=== PATIENT | male | born 1950 | race Caucasian/White ===

== ENCOUNTER 2018-04-17 08:12 | Emergency (ER) | payer BC | END 2018-04-17 09:58 | disposition home or self-care (01) | LOC: FTE 08:12 | DX: S00.03XA Contusion of scalp, initial encounter (principal); W06.XXXA Fall from bed, initial encounter; Y92.9 Unspecified place or not applicable; Z79.82 Long term (current) use of aspirin | CPT/HCPCS: 70450; 72125; 99285-25 ==

== ENCOUNTER 2018-04-25 04:15 | Inpatient (IN) | payer BC ==
[2018-04-25] MEDS: DEXTROSE 5%-0.45% NACL 1,000 ML IV (05:20)
[2018-04-25] MEDS ORDERED: GLUCOSE GEL 15 GRAM TUBE BUCCAL (05:30)
[2018-04-25] MEDS ORDERED: ONDANSETRON 4 MG INJ IV (05:30)
[2018-04-25] MEDS ORDERED: GLUCAGON 1 MG INJ IM (05:30)
[2018-04-25] MEDS ORDERED: DEXTROSE 50% 50 ML SYRINGE IV ×2 (05:30)
[2018-04-25] MEDS ORDERED: GLUCOSE GEL 15 GRAM TUBE PO ×2 (05:30)
[2018-04-25] MEDS: INSULIN ASPART [NOVOLOG] 3 ML PEN SC (09:00)
[2018-04-25] MEDS: ARIPIPRAZOLE 10 MG TAB PO ×2 (10:12→20:14)
[2018-04-25] MEDS: BUPROPION (XL) 150 MG TAB PO (10:12)
[2018-04-25] MEDS: ASPIRIN 81 MG TAB PO (10:12)
[2018-04-25] MEDS: AMLODIPINE 10 MG TAB PO (10:14)
[2018-04-25] MEDS: HEPARIN 5,000 UNIT/0.5 ML VIAL SC ×2 (10:14→20:15)
[2018-04-25] MEDS: Insulin NOVOLOG SS MILD Algorithm (SS with meals and bedtime) SC ×3 (11:30→20:21)
[2018-04-25] MEDS ORDERED: INSULIN ASPART [NOVOLOG] 3 ML PEN SC (11:30)
[2018-04-25 12:30] LABS: ADD MAN DIFF? NO
[2018-04-25 12:32] LABS: WHITE BLOOD COUNT 9.6 10^3/ul (4.8-10.8)
[2018-04-25 12:32] LABS: BASOPHIL # 0.1 10^3/ul (0.0-0.1); BASOPHILS % 0.5 % (0.0-2.0); EOSINOPHILS # 0.1 10^3/ul (0.0-0.5); EOSINOPHILS % 1.3 % (0.0-7.0); HEMATOCRIT 42.5 % (42.0-52.0); HEMOGLOBIN 13.7 g/dl (14.0-18.0); LYMPHOCYTES # 2.7 10^3/ul (0.8-2.9); MEAN CORPUSCULAR HEMOGLOBIN 27.9 pg (29.0-33.0); MEAN CORPUSCULAR HGB CONC 32.2 g/dl (32.0-37.0); MEAN CORPUSCULAR VOLUME 86.6 fl (82.0-101.0); MEAN PLATELET VOLUME 9.9 fl (7.4-10.4); MONOCYTE # 0.8 10^3/ul (0.3-0.9); MONOCYTES % 8.6 % (0.0-11.0); NEUTROPHIL # 5.9 10^3/ul (1.6-7.5); NEUTROPHILS % 61.3 % (39.0-77.0); PLATELET COUNT 248 10^3/UL (140-415); RED BLOOD COUNT 4.91 10^6/ul (4.70-6.10); RED CELL DISTRIBUTION WIDTH 14.2 % (11.5-14.5)
[2018-04-25 12:54] LABS: ANION GAP 12 (8-16); BLOOD UREA NITROGEN 23 mg/dl (7-20); CALCIUM 9.2 mg/dl (8.4-10.2); CARBON DIOXIDE 29 mmol/L (21-31); CHLORIDE 109 mmol/L (97-110); CHOL/HDL RATIO 5.3 RATIO; CHOLESTEROL 150 mg/dl (100-200); CREATININE 0.98 mg/dl (0.61-1.24); GLUCOSE 84 mg/dl (70-220); HDL CHOLESTEROL 28 mg/dl (30-78); LDL CHOLESTEROL,CALCULATED 105 mg/dl; MAGNESIUM 1.9 mg/dl (1.7-2.5); PHOSPHORUS 1.9 mg/dl (2.5-4.9); POTASSIUM 3.6 mmol/L (3.5-5.1); SODIUM 146 mmol/L (135-144); TRIGLYCERIDES 85 mg/dl (0-149)
[2018-04-25 12:55] LABS: HEMOGLOBIN A1C 4.9 % (0-5.9)
[2018-04-25 13:22] LABS: ADD UMIC YES; UR ASCORBIC ACID NEGATIVE (NEGATIVE); UR BACTERIA MODERATE /HPF (NONE SEEN); UR BILIRUBIN (Dip) NEGATIVE (NEGATIVE); UR BLOOD (Dip) 3+ mg/dL (NEGATIVE); UR CLARITY SLIGHTLY CLOUDY (CLEAR); UR COLOR YELLOW (YELLOW); UR GLUCOSE (Dip) NEGATIVE (NEGATIVE); UR KETONES (Dip) NEGATIVE (NEGATIVE); UR LEUKOCYTE ESTERASE (Dip) 1+ Leu/ul (NEGATIVE); UR NITRITE (Dip) NEGATIVE (NEGATIVE); UR RBC > 182 /HPF (0-5); UR SPECIFIC GRAVITY (Dip) 1.015 (1.003-1.030); UR TOTAL PROTEIN (Dip) 2+ mg/dl (NEGATIVE); UR UROBILINOGEN (Dip) 1+ mg/dL (NEGATIVE); UR WBC 85 /HPF (0-5)
[2018-04-25 13:31] LABS: AMPHETAMINE/METHAMPHETAMINE Negative (NEGATIVE); BARBITURATES Negative (NEGATIVE); BENZODIAZEPINES Negative (NEGATIVE); CANNABINOIDS Negative (NEGATIVE); COCAINE Negative (NEGATIVE); OPIATES Negative (NEGATIVE)
[2018-04-25] MEDS: CEFTRIAXONE 1 GM/50 ML (PMX) 50 ML IVPB (18:39)
[2018-04-25] MEDS: QUETIAPINE 25 MG TAB PO (20:14)
[2018-04-25] MEDS: ATORVASTATIN 10 MG TAB PO (20:15)
[2018-04-26] MEDS: Insulin NOVOLOG SS MILD Algorithm (SS with meals and bedtime) SC ×4 (07:30→21:00)
[2018-04-26] MEDS: ARIPIPRAZOLE 10 MG TAB PO ×2 (08:39→21:42)
[2018-04-26] MEDS: BUPROPION (XL) 150 MG TAB PO (08:39)
[2018-04-26] MEDS: ASPIRIN 81 MG TAB PO (08:39)
[2018-04-26] MEDS: AMLODIPINE 10 MG TAB PO (08:39)
[2018-04-26] MEDS: HEPARIN 5,000 UNIT/0.5 ML VIAL SC ×2 (08:41→21:44)
[2018-04-26 09:47] LABS: ADD MAN DIFF? NO
[2018-04-26 09:53] LABS: BASOPHIL # 0.1 10^3/ul (0.0-0.1); BASOPHILS % 0.9 % (0.0-2.0); EOSINOPHILS # 0.2 10^3/ul (0.0-0.5); EOSINOPHILS % 2.7 % (0.0-7.0); HEMATOCRIT 38.8 % (42.0-52.0); HEMOGLOBIN 12.9 g/dl (14.0-18.0); LYMPHOCYTES # 2.1 10^3/ul (0.8-2.9); LYMPHOCYTES % 30.4 % (15.0-51.0); MEAN CORPUSCULAR HEMOGLOBIN 28.2 pg (29.0-33.0); MEAN CORPUSCULAR HGB CONC 33.2 g/dl (32.0-37.0); MEAN CORPUSCULAR VOLUME 84.9 fl (82.0-101.0); MEAN PLATELET VOLUME 10.1 fl (7.4-10.4); MONOCYTE # 0.7 10^3/ul (0.3-0.9); MONOCYTES % 9.9 % (0.0-11.0); NEUTROPHIL # 3.9 10^3/ul (1.6-7.5); NEUTROPHILS % 55.5 % (39.0-77.0); PLATELET COUNT 245 10^3/UL (140-415); RED BLOOD COUNT 4.57 10^6/ul (4.70-6.10); RED CELL DISTRIBUTION WIDTH 13.8 % (11.5-14.5)
[2018-04-26 09:53] LABS: WHITE BLOOD COUNT 7.1 10^3/ul (4.8-10.8)
[2018-04-26 10:17] LABS: ALANINE AMINOTRANSFERASE 19 IU/L (13-69); ALBUMIN 3.2 g/dl (3.3-4.9); ALKALINE PHOSPHATASE 111 IU/L (42-121); ANION GAP 9 (8-16); ASPARTATE AMINO TRANSFERASE 19 IU/L (15-46); BILIRUBIN,INDIRECT 0.2 mg/dl (0-1.1); BILIRUBIN,TOTAL 0.2 mg/dl (0.2-1.3); BLOOD UREA NITROGEN 16 mg/dl (7-20); CALCIUM 9.1 mg/dl (8.4-10.2); CARBON DIOXIDE 28 mmol/L (21-31); CHLORIDE 106 mmol/L (97-110); CREATININE 0.78 mg/dl (0.61-1.24); GLUCOSE 95 mg/dl (70-220); MAGNESIUM 1.7 mg/dl (1.7-2.5); PHOSPHORUS 2.5 mg/dl (2.5-4.9); POTASSIUM 3.1 mmol/L (3.5-5.1); SODIUM 140 mmol/L (135-144); TOTAL PROTEIN 7.2 g/dl (6.1-8.1)
[2018-04-26] MEDS ORDERED: MAGNESIUM SULFATE (GM) 50% 2 ML INJ IVPB (11:30)
[2018-04-26] MEDS: METOPROLOL 25 MG TAB PO ×2 (12:37→21:43)
[2018-04-26] MEDS: POTASSIUM CHLORIDE 20 MEQ POWDER FOR ORAL SOLN PO (12:37)
[2018-04-26] MEDS: MAGNESIUM SULFATE 1 GM/D5W 100 ML IVPB (14:55)
[2018-04-26] MEDS: CEFTRIAXONE 1 GM/50 ML (PMX) 50 ML IVPB (18:11)
[2018-04-26] MEDS: ATORVASTATIN 10 MG TAB PO (21:42)
[2018-04-26] MEDS: QUETIAPINE 25 MG TAB PO (21:42)
[2018-04-27] MEDS: hydrALAzine 20 MG INJ IV ×2 (04:07→05:20)
[2018-04-27 06:38] LABS: ADD MAN DIFF? NO
[2018-04-27 06:45] LABS: BASOPHIL # 0.1 10^3/ul (0.0-0.1); BASOPHILS % 0.6 % (0.0-2.0); EOSINOPHILS # 0.2 10^3/ul (0.0-0.5); EOSINOPHILS % 2.2 % (0.0-7.0); HEMATOCRIT 38.7 % (42.0-52.0); LYMPHOCYTES # 3.2 10^3/ul (0.8-2.9); LYMPHOCYTES % 38.1 % (15.0-51.0); MEAN CORPUSCULAR HEMOGLOBIN 28.6 pg (29.0-33.0); MEAN CORPUSCULAR HGB CONC 33.6 g/dl (32.0-37.0); MEAN CORPUSCULAR VOLUME 85.2 fl (82.0-101.0); MEAN PLATELET VOLUME 10.1 fl (7.4-10.4); MONOCYTE # 0.8 10^3/ul (0.3-0.9); MONOCYTES % 9.4 % (0.0-11.0); NEUTROPHIL # 4.1 10^3/ul (1.6-7.5); NEUTROPHILS % 49.3 % (39.0-77.0); PLATELET COUNT 272 10^3/UL (140-415); RED BLOOD COUNT 4.54 10^6/ul (4.70-6.10); RED CELL DISTRIBUTION WIDTH 13.7 % (11.5-14.5)
[2018-04-27 06:45] LABS: WHITE BLOOD COUNT 8.3 10^3/ul (4.8-10.8)
[2018-04-27 07:02] LABS: ANION GAP 9 (8-16); BLOOD UREA NITROGEN 14 mg/dl (7-20); CALCIUM 9.3 mg/dl (8.4-10.2); CARBON DIOXIDE 28 mmol/L (21-31); CHLORIDE 107 mmol/L (97-110); CREATININE 0.81 mg/dl (0.61-1.24); GLUCOSE 76 mg/dl (70-220); MAGNESIUM 1.9 mg/dl (1.7-2.5); PHOSPHORUS 2.6 mg/dl (2.5-4.9); POTASSIUM 3.6 mmol/L (3.5-5.1); SODIUM 140 mmol/L (135-144)
[2018-04-27] MEDS: Insulin NOVOLOG SS MILD Algorithm (SS with meals and bedtime) SC (07:30)
[2018-04-27] MEDS: HEPARIN 5,000 UNIT/0.5 ML VIAL SC ×2 (09:13→20:54)
[2018-04-27] MEDS: ASPIRIN 81 MG TAB PO (09:18)
[2018-04-27] MEDS: METOPROLOL 25 MG TAB PO ×2 (09:18→20:52)
[2018-04-27] MEDS: ARIPIPRAZOLE 10 MG TAB PO ×2 (09:18→20:50)
[2018-04-27] MEDS: BUPROPION (XL) 150 MG TAB PO (09:19)
[2018-04-27] MEDS: AMLODIPINE 10 MG TAB PO (09:19)
[2018-04-27] MEDS ORDERED: PENDING SANTYL ORDER FOR WOUND CARE XX (17:00)
[2018-04-27] MEDS: QUETIAPINE 25 MG TAB PO (20:50)
[2018-04-27] MEDS: ATORVASTATIN 10 MG TAB PO (20:50)
[2018-04-27] MEDS: TRIMETHOPRIM/SULFAMETHOX (DS) TAB PO (20:52)
[2018-04-28] MEDS: ARIPIPRAZOLE 10 MG TAB PO ×2 (09:01→21:19)
[2018-04-28] MEDS: METOPROLOL 25 MG TAB PO ×2 (09:02→21:19)
[2018-04-28] MEDS: BUPROPION (XL) 150 MG TAB PO (09:02)
[2018-04-28] MEDS: ASPIRIN 81 MG TAB PO (09:02)
[2018-04-28] MEDS: AMLODIPINE 10 MG TAB PO (09:02)
[2018-04-28] MEDS: TRIMETHOPRIM/SULFAMETHOX (DS) TAB PO ×2 (09:02→21:20)
[2018-04-28] MEDS: HEPARIN 5,000 UNIT/0.5 ML VIAL SC ×2 (09:04→21:26)
[2018-04-28] MEDS: ATORVASTATIN 10 MG TAB PO (21:20)
[2018-04-28] MEDS: QUETIAPINE 25 MG TAB PO (21:20)
[2018-04-29] MEDS: ARIPIPRAZOLE 10 MG TAB PO ×2 (08:58→21:01)
[2018-04-29] MEDS: ASPIRIN 81 MG TAB PO (08:58)
[2018-04-29] MEDS: TRIMETHOPRIM/SULFAMETHOX (DS) TAB PO ×2 (08:58→21:01)
[2018-04-29] MEDS: BUPROPION (XL) 150 MG TAB PO (08:58)
[2018-04-29] MEDS: AMLODIPINE 10 MG TAB PO (08:59)
[2018-04-29] MEDS: METOPROLOL 25 MG TAB PO ×2 (08:59→21:02)
[2018-04-29] MEDS: HEPARIN 5,000 UNIT/0.5 ML VIAL SC ×2 (09:00→21:08)
[2018-04-29 12:28] LABS: ADD MAN DIFF? NO
[2018-04-29 12:35] LABS: BASOPHIL # 0.1 10^3/ul (0.0-0.1); BASOPHILS % 0.9 % (0.0-2.0); EOSINOPHILS # 0.2 10^3/ul (0.0-0.5); HEMATOCRIT 40.5 % (42.0-52.0); LYMPHOCYTES # 2.6 10^3/ul (0.8-2.9); LYMPHOCYTES % 34.8 % (15.0-51.0); MEAN CORPUSCULAR HEMOGLOBIN 28.1 pg (29.0-33.0); MEAN CORPUSCULAR HGB CONC 32.1 g/dl (32.0-37.0); MEAN CORPUSCULAR VOLUME 87.5 fl (82.0-101.0); MEAN PLATELET VOLUME 9.5 fl (7.4-10.4); MONOCYTE # 0.7 10^3/ul (0.3-0.9); MONOCYTES % 9.3 % (0.0-11.0); NEUTROPHIL # 3.9 10^3/ul (1.6-7.5); NEUTROPHILS % 52.7 % (39.0-77.0); PLATELET COUNT 338 10^3/UL (140-415); RED BLOOD COUNT 4.63 10^6/ul (4.70-6.10); RED CELL DISTRIBUTION WIDTH 13.9 % (11.5-14.5)
[2018-04-29 12:35] LABS: WHITE BLOOD COUNT 7.5 10^3/ul (4.8-10.8)
[2018-04-29 13:04] LABS: ANION GAP 9 (8-16); BLOOD UREA NITROGEN 11 mg/dl (7-20); CALCIUM 9.3 mg/dl (8.4-10.2); CARBON DIOXIDE 29 mmol/L (21-31); CHLORIDE 106 mmol/L (97-110); CREATININE 1.15 mg/dl (0.61-1.24); GLUCOSE 78 mg/dl (70-220); PHOSPHORUS 2.6 mg/dl (2.5-4.9); POTASSIUM 3.7 mmol/L (3.5-5.1); SODIUM 140 mmol/L (135-144)
[2018-04-29] MEDS: ATORVASTATIN 10 MG TAB PO (21:01)
[2018-04-29] MEDS: QUETIAPINE 25 MG TAB PO (21:01)
[2018-04-30] MEDS: BUPROPION (XL) 150 MG TAB PO (08:20)
[2018-04-30] MEDS: ASPIRIN 81 MG TAB PO (08:20)
[2018-04-30] MEDS: ARIPIPRAZOLE 10 MG TAB PO ×2 (08:20→20:23)
[2018-04-30] MEDS: TRIMETHOPRIM/SULFAMETHOX (DS) TAB PO (08:20)
[2018-04-30] MEDS: METOPROLOL 25 MG TAB PO ×2 (08:21→20:24)
[2018-04-30] MEDS: HEPARIN 5,000 UNIT/0.5 ML VIAL SC ×2 (08:21→20:24)
[2018-04-30] MEDS: AMLODIPINE 10 MG TAB PO (08:21)
[2018-04-30] MEDS: QUETIAPINE 25 MG TAB PO (20:24)
[2018-04-30] MEDS: ATORVASTATIN 10 MG TAB PO (20:24)
[2018-05-01] MEDS: AMLODIPINE 10 MG TAB PO (11:13)
[2018-05-01] MEDS: METOPROLOL 25 MG TAB PO ×2 (11:13→20:38)
[2018-05-01] MEDS: ASPIRIN 81 MG TAB PO (11:14)
[2018-05-01] MEDS: ARIPIPRAZOLE 10 MG TAB PO ×2 (11:14→20:38)
[2018-05-01] MEDS: HEPARIN 5,000 UNIT/0.5 ML VIAL SC ×2 (11:22→20:39)
[2018-05-01] MEDS: BUPROPION (XL) 150 MG TAB PO (12:38)
[2018-05-01] MEDS: COLLAGENASE 5 GM (UD JAR) TOP (17:37)
[2018-05-01] MEDS ORDERED: COLLAGENASE 5 GM (UD JAR) TOP (18:00)
[2018-05-01] MEDS: ATORVASTATIN 10 MG TAB PO (20:38)
[2018-05-01] MEDS: QUETIAPINE 25 MG TAB PO (20:39)
[2018-05-02 07:08] LABS: ADD MAN DIFF? NO
[2018-05-02 07:24] LABS: WHITE BLOOD COUNT 8.9 10^3/ul (4.8-10.8)
[2018-05-02 07:24] LABS: BASOPHIL # 0.1 10^3/ul (0.0-0.1); BASOPHILS % 1.5 % (0.0-2.0); EOSINOPHILS # 0.2 10^3/ul (0.0-0.5); EOSINOPHILS % 2.4 % (0.0-7.0); HEMATOCRIT 40.6 % (42.0-52.0); HEMOGLOBIN 13.5 g/dl (14.0-18.0); LYMPHOCYTES # 4.1 10^3/ul (0.8-2.9); LYMPHOCYTES % 46.5 % (15.0-51.0); MEAN CORPUSCULAR HEMOGLOBIN 28.6 pg (29.0-33.0); MEAN CORPUSCULAR HGB CONC 33.3 g/dl (32.0-37.0); MONOCYTE # 0.7 10^3/ul (0.3-0.9); MONOCYTES % 8.2 % (0.0-11.0); NEUTROPHIL # 3.6 10^3/ul (1.6-7.5); NEUTROPHILS % 40.8 % (39.0-77.0); PLATELET COUNT 301 10^3/UL (140-415); RED BLOOD COUNT 4.72 10^6/ul (4.70-6.10); RED CELL DISTRIBUTION WIDTH 13.9 % (11.5-14.5)
[2018-05-02] MEDS: AMLODIPINE 10 MG TAB PO (08:45)
[2018-05-02] MEDS: COLLAGENASE 5 GM (UD JAR) TOP (08:45)
[2018-05-02] MEDS: BUPROPION (XL) 150 MG TAB PO (08:45)
[2018-05-02] MEDS: ASPIRIN 81 MG TAB PO (08:45)
[2018-05-02] MEDS: ARIPIPRAZOLE 10 MG TAB PO ×2 (08:45→20:40)
[2018-05-02] MEDS: METOPROLOL 25 MG TAB PO ×2 (08:46→20:41)
[2018-05-02] MEDS: HEPARIN 5,000 UNIT/0.5 ML VIAL SC ×2 (08:49→20:45)
[2018-05-02 09:11] LABS: ANION GAP 10 (8-16); BLOOD UREA NITROGEN 11 mg/dl (7-20); CALCIUM 9.3 mg/dl (8.4-10.2); CARBON DIOXIDE 23 mmol/L (21-31); CHLORIDE 109 mmol/L (97-110); CREATININE 1.02 mg/dl (0.61-1.24); GLUCOSE 84 mg/dl (70-220); MAGNESIUM 1.9 mg/dl (1.7-2.5); PHOSPHORUS 3.1 mg/dl (2.5-4.9); POTASSIUM 4.2 mmol/L (3.5-5.1); SODIUM 138 mmol/L (135-144)
[2018-05-02] MEDS: ATORVASTATIN 10 MG TAB PO (20:40)
[2018-05-02] MEDS: QUETIAPINE 25 MG TAB PO (20:40)
[2018-05-03] MEDS: ARIPIPRAZOLE 10 MG TAB PO ×3 (08:08→21:10)
[2018-05-03] MEDS: ASPIRIN 81 MG TAB PO (08:08)
[2018-05-03] MEDS: AMLODIPINE 10 MG TAB PO (08:08)
[2018-05-03] MEDS: METOPROLOL 25 MG TAB PO ×2 (08:08→21:09)
[2018-05-03] MEDS: BUPROPION (XL) 150 MG TAB PO (08:08)
[2018-05-03] MEDS: COLLAGENASE 5 GM (UD JAR) TOP (08:09)
[2018-05-03] MEDS: HEPARIN 5,000 UNIT/0.5 ML VIAL SC ×3 (08:09→21:10)
[2018-05-03] MEDS: ATORVASTATIN 10 MG TAB PO ×2 (21:00→21:10)
[2018-05-03] MEDS: QUETIAPINE 25 MG TAB PO ×2 (21:00→21:10)
[2018-05-03] MEDS: HALOPERIDOL 5 MG INJ IM (22:12)
[2018-05-04] MEDS: ARIPIPRAZOLE 10 MG TAB PO ×2 (10:13→20:47)
[2018-05-04] MEDS: ASPIRIN 81 MG TAB PO (10:13)
[2018-05-04] MEDS: BUPROPION (XL) 150 MG TAB PO (10:14)
[2018-05-04] MEDS: AMLODIPINE 10 MG TAB PO (10:14)
[2018-05-04] MEDS: METOPROLOL 25 MG TAB PO ×2 (10:15→20:48)
[2018-05-04] MEDS: HEPARIN 5,000 UNIT/0.5 ML VIAL SC ×2 (10:17→21:02)
[2018-05-04] MEDS: COLLAGENASE 5 GM (UD JAR) TOP (16:30)
[2018-05-04] MEDS: ATORVASTATIN 10 MG TAB PO (20:47)
[2018-05-04] MEDS: QUETIAPINE 25 MG TAB PO (20:48)
[2018-05-05] MEDS: ARIPIPRAZOLE 10 MG TAB PO ×2 (10:01→20:01)
[2018-05-05] MEDS: METOPROLOL 25 MG TAB PO ×2 (10:02→20:02)
[2018-05-05] MEDS: AMLODIPINE 10 MG TAB PO (10:02)
[2018-05-05] MEDS: ASPIRIN 81 MG TAB PO (10:02)
[2018-05-05] MEDS: BUPROPION (XL) 150 MG TAB PO (10:02)
[2018-05-05] MEDS: HEPARIN 5,000 UNIT/0.5 ML VIAL SC ×2 (10:06→20:03)
[2018-05-05] MEDS: COLLAGENASE 5 GM (UD JAR) TOP (10:07)
[2018-05-05] MEDS: QUETIAPINE 25 MG TAB PO (20:01)
[2018-05-05] MEDS: ATORVASTATIN 10 MG TAB PO (20:01)
[2018-05-06] MEDS: BUPROPION (XL) 150 MG TAB PO (09:04)
[2018-05-06] MEDS: ASPIRIN 81 MG TAB PO (09:04)
[2018-05-06] MEDS: METOPROLOL 25 MG TAB PO ×2 (09:05→21:01)
[2018-05-06] MEDS: AMLODIPINE 10 MG TAB PO (09:05)
[2018-05-06] MEDS: COLLAGENASE 5 GM (UD JAR) TOP (09:05)
[2018-05-06] MEDS: ARIPIPRAZOLE 10 MG TAB PO ×2 (09:09→21:00)
[2018-05-06] MEDS: HEPARIN 5,000 UNIT/0.5 ML VIAL SC ×2 (09:13→21:02)
[2018-05-06] MEDS: QUETIAPINE 25 MG TAB PO (21:00)
[2018-05-06] MEDS: ATORVASTATIN 10 MG TAB PO (21:00)
[2018-05-07] MEDS: ASPIRIN 81 MG TAB PO (08:39)
[2018-05-07] MEDS: METOPROLOL 25 MG TAB PO ×2 (08:39→20:12)
[2018-05-07] MEDS: ARIPIPRAZOLE 10 MG TAB PO ×2 (08:40→20:12)
[2018-05-07] MEDS: BUPROPION (XL) 150 MG TAB PO (08:40)
[2018-05-07] MEDS: AMLODIPINE 10 MG TAB PO (08:40)
[2018-05-07] MEDS: COLLAGENASE 5 GM (UD JAR) TOP (08:40)
[2018-05-07] MEDS: HEPARIN 5,000 UNIT/0.5 ML VIAL SC ×2 (08:41→20:17)
[2018-05-07] MEDS: QUETIAPINE 25 MG TAB PO (20:12)
[2018-05-07] MEDS: ATORVASTATIN 10 MG TAB PO (20:12)
[2018-05-08] MEDS: ASPIRIN 81 MG TAB PO (08:57)
[2018-05-08] MEDS: COLLAGENASE 5 GM (UD JAR) TOP (08:57)
[2018-05-08] MEDS: ARIPIPRAZOLE 10 MG TAB PO ×2 (08:57→20:58)
[2018-05-08] MEDS: BUPROPION (XL) 150 MG TAB PO (08:58)
[2018-05-08] MEDS: METOPROLOL 25 MG TAB PO ×2 (08:58→20:59)
[2018-05-08] MEDS: AMLODIPINE 10 MG TAB PO (08:58)
[2018-05-08] MEDS: HEPARIN 5,000 UNIT/0.5 ML VIAL SC ×2 (09:04→20:54)
[2018-05-08] MEDS: ATORVASTATIN 10 MG TAB PO (20:58)
[2018-05-08] MEDS: QUETIAPINE 25 MG TAB PO (20:58)
[2018-05-09] MEDS: ARIPIPRAZOLE 10 MG TAB PO ×2 (10:00→20:59)
[2018-05-09] MEDS: HEPARIN 5,000 UNIT/0.5 ML VIAL SC ×2 (10:00→20:59)
[2018-05-09] MEDS: ASPIRIN 81 MG TAB PO (10:00)
[2018-05-09] MEDS: BUPROPION (XL) 150 MG TAB PO (10:00)
[2018-05-09] MEDS: COLLAGENASE 5 GM (UD JAR) TOP (10:00)
[2018-05-09] MEDS: AMLODIPINE 10 MG TAB PO (10:01)
[2018-05-09] MEDS: METOPROLOL 25 MG TAB PO ×2 (10:01→20:59)
[2018-05-09] MEDS: QUETIAPINE 25 MG TAB PO (20:58)
[2018-05-09] MEDS: ATORVASTATIN 10 MG TAB PO (20:59)
[2018-05-10] MEDS: BUPROPION (XL) 150 MG TAB PO (08:53)
[2018-05-10] MEDS: AMLODIPINE 10 MG TAB PO (08:53)
[2018-05-10] MEDS: ASPIRIN 81 MG TAB PO (08:53)
[2018-05-10] MEDS: ARIPIPRAZOLE 10 MG TAB PO ×2 (08:54→20:26)
[2018-05-10] MEDS: COLLAGENASE 5 GM (UD JAR) TOP (08:54)
[2018-05-10] MEDS: METOPROLOL 25 MG TAB PO ×2 (08:54→20:27)
[2018-05-10] MEDS: HEPARIN 5,000 UNIT/0.5 ML VIAL SC ×2 (08:56→20:27)
[2018-05-10] MEDS: ATORVASTATIN 10 MG TAB PO (20:26)
[2018-05-10] MEDS: QUETIAPINE 25 MG TAB PO (20:26)
[2018-05-11] MEDS: AMLODIPINE 10 MG TAB PO (08:34)
[2018-05-11] MEDS: ARIPIPRAZOLE 10 MG TAB PO ×2 (08:35→19:31)
[2018-05-11] MEDS: METOPROLOL 25 MG TAB PO ×2 (08:35→19:31)
[2018-05-11] MEDS: BUPROPION (XL) 150 MG TAB PO (08:35)
[2018-05-11] MEDS: ASPIRIN 81 MG TAB PO (08:35)
[2018-05-11] MEDS: HEPARIN 5,000 UNIT/0.5 ML VIAL SC ×2 (08:36→19:38)
[2018-05-11] MEDS: COLLAGENASE 5 GM (UD JAR) TOP (08:37)
[2018-05-11] MEDS: ATORVASTATIN 10 MG TAB PO (19:31)
[2018-05-11] MEDS: QUETIAPINE 25 MG TAB PO (19:31)
[2018-05-12] MEDS: ARIPIPRAZOLE 10 MG TAB PO ×2 (08:52→20:06)
[2018-05-12] MEDS: BUPROPION (XL) 150 MG TAB PO (08:52)
[2018-05-12] MEDS: ASPIRIN 81 MG TAB PO (08:52)
[2018-05-12] MEDS: AMLODIPINE 10 MG TAB PO (08:52)
[2018-05-12] MEDS: METOPROLOL 25 MG TAB PO ×3 (08:52→20:10)
[2018-05-12] MEDS: HEPARIN 5,000 UNIT/0.5 ML VIAL SC ×2 (08:57→20:09)
[2018-05-12] MEDS: COLLAGENASE 5 GM (UD JAR) TOP (09:01)
[2018-05-12] MEDS: QUETIAPINE 25 MG TAB PO (20:06)
[2018-05-12] MEDS: GABAPENTIN 100 MG CAP PO (20:21)
[2018-05-12] MEDS: ATORVASTATIN 10 MG TAB PO (20:21)
[2018-05-13] MEDS: METOPROLOL 25 MG TAB PO (08:51)
[2018-05-13] MEDS: ARIPIPRAZOLE 10 MG TAB PO (08:51)
[2018-05-13] MEDS: BUPROPION (XL) 150 MG TAB PO (08:51)
[2018-05-13] MEDS: ASPIRIN 81 MG TAB PO (08:51)
[2018-05-13] MEDS: COLLAGENASE 5 GM (UD JAR) TOP (08:51)
[2018-05-13] MEDS: AMLODIPINE 10 MG TAB PO (08:52)
[2018-05-13] MEDS: HEPARIN 5,000 UNIT/0.5 ML VIAL SC (08:53)
== END 2018-05-13 12:45 | DRG 690 ==
LOC: PP2 04:15 → 5EC 05-01 04:58 → PP2 04-28 23:43
PROVIDERS: Internal Medicine
DX: N39.0 Urinary tract infection, site not specified (principal); F33.3 Major depressive disorder, recurrent, severe with psychotic symptoms; E87.6 Hypokalemia; I10 Essential (primary) hypertension; I69.398 Other sequelae of cerebral infarction; R26.9 Unspecified abnormalities of gait and mobility; R29.6 Repeated falls; Z74.1 Need for assistance with personal care
CPT/HCPCS: 80048; 80053; 80061; 80307; 81001; 82962; 83036; 83735; 84100; 84443; 85025; 87086; 92526; 92610; 93880; 97110; 97116; 97162; 97165; 97530

== ENCOUNTER 2018-05-14 09:34 | Emergency (ER) | payer BC ==
[2018-05-14 11:37] LABS: ADD UMIC NO; UR ASCORBIC ACID NEGATIVE (NEGATIVE); UR BILIRUBIN (Dip) NEGATIVE (NEGATIVE); UR BLOOD (Dip) NEGATIVE (NEGATIVE); UR CLARITY CLEAR (CLEAR); UR COLOR YELLOW (YELLOW); UR GLUCOSE (Dip) NEGATIVE (NEGATIVE); UR KETONES (Dip) NEGATIVE (NEGATIVE); UR LEUKOCYTE ESTERASE (Dip) NEGATIVE Leu/ul (NEGATIVE); UR NITRITE (Dip) NEGATIVE (NEGATIVE); UR SPECIFIC GRAVITY (Dip) 1.015 (1.003-1.030); UR TOTAL PROTEIN (Dip) NEGATIVE (NEGATIVE); UR UROBILINOGEN (Dip) 1+ mg/dL (NEGATIVE)
[2018-05-14 12:10] LABS: ADD MAN DIFF? NO
[2018-05-14 12:12] LABS: WHITE BLOOD COUNT 5.7 10^3/ul (4.8-10.8)
[2018-05-14 12:12] LABS: BASOPHIL # 0.1 10^3/ul (0.0-0.1); BASOPHILS % 1.1 % (0.0-2.0); EOSINOPHILS # 0.2 10^3/ul (0.0-0.5); HEMATOCRIT 43.7 % (42.0-52.0); HEMOGLOBIN 14.1 g/dl (14.0-18.0); LYMPHOCYTES # 2.5 10^3/ul (0.8-2.9); LYMPHOCYTES % 43.2 % (15.0-51.0); MEAN CORPUSCULAR HEMOGLOBIN 28.5 pg (29.0-33.0); MEAN CORPUSCULAR HGB CONC 32.3 g/dl (32.0-37.0); MEAN CORPUSCULAR VOLUME 88.5 fl (82.0-101.0); MONOCYTE # 0.3 10^3/ul (0.3-0.9); MONOCYTES % 4.7 % (0.0-11.0); NEUTROPHIL # 2.7 10^3/ul (1.6-7.5); NEUTROPHILS % 47.8 % (39.0-77.0); PLATELET COUNT 233 10^3/UL (140-415); RED BLOOD COUNT 4.94 10^6/ul (4.70-6.10); RED CELL DISTRIBUTION WIDTH 15.2 % (11.5-14.5)
[2018-05-14 12:32] LABS: ANION GAP 14 (8-16); BLOOD UREA NITROGEN 12 mg/dl (7-20); CALCIUM 9.7 mg/dl (8.4-10.2); CARBON DIOXIDE 26 mmol/L (21-31); CHLORIDE 107 mmol/L (97-110); CREATININE 1.04 mg/dl (0.61-1.24); GLUCOSE 62 mg/dl (70-220); SODIUM 143 mmol/L (135-144)
== END 2018-05-14 14:12 | disposition home or self-care (01) ==
LOC: E/R 09:34
DX: F03.90 Unspecified dementia, unspecified severity, without behavioral disturbance, psychotic disturbance, mood disturbance, and anxiety (principal); E16.2 Hypoglycemia, unspecified; R40.2142 Coma scale, eyes open, spontaneous, at arrival to emergency department; R40.2252 Coma scale, best verbal response, oriented, at arrival to emergency department; I10 Essential (primary) hypertension; Z86.73 Personal history of transient ischemic attack (TIA), and cerebral infarction without residual deficits; Z79.82 Long term (current) use of aspirin
CPT/HCPCS: 80048; 81003; 85025; 99283